=== PATIENT | male | born 1990 | race Caucasian/White ===

== ENCOUNTER 2016-07-20 11:57 | Emergency (ER) | payer SELFPAY ==
[~2016-07-20] VITALS: Ht 170.2 cm; Wt 63.5 kg
[~2016-07-20 11:57] MED LIST: ACET325T14; ALPR1TAB5; AZIT250T; BUTA-5; IBUP200C
[2016-07-20 11:58] VITALS: BP 127/79
== END 2016-07-20 14:32 | disposition home or self-care (01) ==
LOC: ED 13:09
DX: J02.9 Acute pharyngitis, unspecified (principal); F12.10 Cannabis abuse, uncomplicated
CPT/HCPCS: 87081; 87880; 99284

== ENCOUNTER 2017-05-22 12:21 | Emergency (ER) | payer MEDICAID ==
[~2017-05-22] VITALS: Ht 170.2 cm; Wt 68.7 kg
[~2017-05-22 12:21] MED LIST changes: -IBUP200C; +IBUP200C5
[2017-05-22 12:30] VITALS: BP 118/76
[2017-05-22] MEDS ORDERED: KETOROLAC 30 MG/1 ML ONE (12:58)
[2017-05-22] MEDS ORDERED: KETOROLAC 30 MG/1 ML IM ONE (13:00)
== END 2017-05-22 13:35 | disposition home or self-care (01) ==
LOC: ED 13:34
DX: S46.012A Strain of muscle(s) and tendon(s) of the rotator cuff of left shoulder, initial encounter (principal); S33.5XXA Sprain of ligaments of lumbar spine, initial encounter; W01.0XXA Fall on same level from slipping, tripping and stumbling without subsequent striking against object, initial encounter; Y93.89 Activity, other specified; Y92.89 Other specified places as the place of occurrence of the external cause; Y99.8 Other external cause status
CPT/HCPCS: 72110; 73030; 96372; 99284; J1885